=== PATIENT | female | born 1945 | race Caucasian/White ===

== ENCOUNTER 2018-03-23 21:37 | Inpatient (IN) | payer MEDICARE, OTHER ==
--- NOTE | 2018-03-23 22:34 | ED Physician Chart ---
ED Chief Complaint/HPI - Patient Information Date Seen:: 03/23/18 Time Seen:: 21:30 Chief Complaint:: Depression History of Present Illness:: onset x 3 days of depression and decreased activity; no report of trauma, SIs, H /As, S/T, neck pain, C/P, SOB, Abd. Pain, A/N/V/D/C, fever, chills, or urinary s /s Historian:: Patient, EMS Review:: Nurse's Note Reviewed, Old Chart Reviewed, EMS run form Reviewed ED Review of Systems - Review of Systems General/Constitutional: No fever, No chills, No weight loss, No weakness, No diaphoresis, No edema, No loss of appetite Skin: No skin lesions, No rash, No bruising Head: No headache, No light-headedness Eyes: No loss of vision, No pain, No diplopia ENT: No earache, No nasal drainage, No sore throat, No tinnitus Neck: No neck pain, No swelling, No thyromegaly, No stiffness, No mass noted Cardio Vascular: No chest pain, No palpitations, No PND, No orthopnea, No edema Pulmonary: No SOB, No cough, No sputum, No wheezing GI: No nausea, No vomiting, No diarrhea, No pain, No melena, No hematochezia, No constipation, No hematemesis G/U: No dysuria, No frequency, No hematuria, No nacturia [employer]: No vaginal discharge, No abnormal vaginal bleed, No contraction Musculoskeletal: No bone or joint pain, No back pain, No muscle pain Endocrine: No polyuria, No polydipsia Psychiatric: Prior psych history, Depression, Anxiety, No suicidal ideation, No homicidal ideation, No auditory hallucination, No visual hallucination Hematopoietic: No bruising, No lymphadenopathy Allergic/Immuno: No urticaria, No angioedema Neurological: No syncope, No focal symptoms, No weakness, No paresthesia, No headache, No seizure, No dizziness, Confusion, No vertigo ED Past Medical History - Past Medical History Obtainable: Yes Past Medical History: HTN, Dyslipidemia, Arthritis, Dementia Family History: HTN Social History: Non Smoker, No Alcohol, No Drug Use, Single, Care Facility Surgical History: None Psychiatricy History: Depression, Dementia Medication: Reviewed Family Medical History - Family Member Mother History Unknown: Yes ED Physical Exam - Physical Examination General/Constitutional: Awake, Well-developed, well-nourished, Alert, No distress, GCS 15, Non-toxic appearing, Ambulatory Head: Atraumatic Eyes: Lids, conjuctiva normal, PERRL, EOMI Skin: Nl inspection, No rash, No skin lesions, No ecchymosis, Well hydrated, No lymphadenopathy ENMT: External ears, nose nl, TM canals nl, Nasal exam nl, Lips, teeth, gums nl , Oropharynx nl, Tonsils nl Neck: Nontender, Full ROM w/o pain, No JVD, No nuchal rigidity, No bruit, No mass, No stridor Other Neck comments:: supple; no meningeal signs; no cervical tenderness Respiratory: Nl effort/Exclusion, Clear to Auscultation, No Wheeze/Rhonchi/Rales Cardio Vascular: RRR, No murmur, gallop, rubs, NL S1 S2, Carotid/Femoral/Distal pulses equal bilaterally GI: No tenderness/rebounding/guarding, No organomegaly, No hernia, Normal BS's, Nondistended, No mass/bruits, No McBurney tenderness Other GI comments:: no pulsatile masses : No CVA tenderness Extremities: No tenderness or effusion, Full ROM, normal strength in all extremities, No edema, Normal digits & nails Neuro/Psych: Alert/oriented, DTR's symmetric, Normal sensory exam, Normal motor strength, Judgement/insight normal, Mood normal, Normal gait, No focal deficits Other Neuro/Psych comments:: + Psychomotor Retardation; no SIs; Mood/Affect: Labile Misc: Normal back, No paraspinal tenderness ED Labs/Radiology/EKG Results - Lab Results Comments:: unremarkable - EKG Interpretations EKG Time:: 22:52 Rate & Rhythm: 77; NSR Comments:: non-specific st-t changes ED Septic Shock - . Is Septic Shock (SBP<90, OR Lactate>4 mmol\L) present?: No ED Reassessment (Disposition) - Reassessment Reassessment Condition:: Improved - Diagnosis Diagnosis:: Dx: Depression; Bipolar Disorder; Medical Clearance - Aftercare/Follow up Instructions Aftercare/Follow-Up Instructions:: Counseled pt regarding lab results/diagnosis & need follow up, Counseled pt & family regarding lab results/diagnosis & need follow up - Patient Disposition Discharge/Transfer:: Acute Care w/in this hosp Admitted to:: [facility] Condition at Disposition:: Stable, Improved
[2018-03-23 22:53] LABS: % BASOPHILS 0.3 % (0.0-2.0); % EOSINOPHILS 3.7 % (0.0-5.0); % LYMPHOCYTES 18.5 % (20.0-50.0); % MONOCYTES 3.8 % (2.0-10.0); % NEUTROPHILS 73.7 % (40.0-80.0); EOSINOPHILE ABSOLUTE 0.4 Th/cmm (0.1-0.4); HEMATOCRIT 35.9 % (41.0-60); LYMPHOCYTE ABSOLUTE 1.8 Th/cmm (1.5-3.0); MEAN CORPUSCULAR HEMOGLOBIN 28.3 pg (27.0-31.0); MEAN CORPUSCULAR HGB CONC 33.3 pg (28.0-36.0); MEAN PLATELET VOLUME 7.1 fl; MONOCYTE ABSOLUTE 0.4 Th/cmm (0.3-1.0); NEUTROPHILE ABSOLUTE 7.2 Th/cmm (1.8-8.0); PLATELET COUNT 437 Th/cmm (150-400); RED BLOOD COUNT 4.23 Mil/cmm (3.80-5.20); RED CELL DISTRIBUTION WIDTH 14.4 % (11.5-20.0); WHITE BLOOD COUNT 9.8 Th/cmm (4.8-10.8)
[2018-03-23 23:08] LABS: ACETAMINOPHEN < 10.0 ug/mL (10.0-30.0); ALB/GLOB RATIO 0.9 (1.0-1.8); ALBUMIN 3.4 gm/dL (3.7-5.3); ALKALINE PHOSPHATASE 88 U/L (34-104); ANION GAP 13.2 (7.0-16.0); BILIRUBIN,TOTAL 0.3 mg/dL (0.3-1.0); BUN - UREA NITROGEN 11 mg/dL (7-25); CALCIUM SERUM 9.1 mg/dL (8.6-10.3); CARBON DIOXIDE 25.7 mEq/L (21.0-31.0); CHLORIDE 98 mEq/L (98-107); CHOLESTEROL 177 mg/dL (<200); CREATININE - SERUM 0.6 mg/dL (0.6-1.2); GLUCOSE 138 mg/dL (70-105); HDL -HIGH DENSITY LIPOPROTEIN 66 mg/dL (23-92); POTASSIUM SERUM 3.9 mEq/L (3.5-5.1); SALICYLATES (ASPIRIN) < 25.0 mg/L (30.0-100.0); SGOT 13 U/L (13-39); SGPT/ALT 9 U/L (7-52); SODIUM SERUM 133 mEq/L (136-145); TOTAL PROTEIN,SERUM 7.2 gm/dL (6.0-8.3); TRIGLYCERIDES 116 mg/dL (<150)
[2018-03-24 00:36] VITALS: BP 163/81
[2018-03-24] MEDS ORDERED: Magnesium Hydroxide (MOM) 30 mL UDC PO PRN (06:57)
[2018-03-24] MEDS ORDERED: Polyvinyl Alcohol Ophth Soln 15 mL Bottle EACH EYE PRN (06:57)
[2018-03-24] MEDS: Hydrocodone/APAP 10 mg/325 mg Tab PO SCH ×3 (08:00→19:54)
[2018-03-24] MEDS ORDERED: Non-Formulary Item 1 EA (Ipratropium Bromide [Atrovent Hfa] 2 PUFF) INH SCH (09:00)
[2018-03-24] MEDS ORDERED: [UNRECOGNIZED DRUG - OTHER] PO SCH (09:00)
[2018-03-24] MEDS ORDERED: Non-Formulary Item 1 EA (Nifedipine [Nifedipine Er] 60 MG) PO SCH (09:00)
[2018-03-24] MEDS: NIFEdipine 30 mg ER Tab PO SCH (09:41)
[2018-03-24] MEDS: Aspirin 81mg Chewable Tab PO SCH (09:41)
--- NOTE | 2018-03-24 09:41 | Diagnostic Imaging Report ---
CHEST X-RAY: AP view INDICATION: COPD, shortness of breath COMPARISON: None FINDINGS: Chronic lung changes are seen with right upper lung zone scarring. Slight increased left basal lung markings are noted. No focal consolidation. Cardiomegaly is noted with atherosclerosis. Degenerative changes of the spine are noted. Old left clavicular fracture is noted. IMPRESSION: Chronic lung changes. Slight increased left basal lung markings may be due to atelectasis or superimposition of soft tissue structures. Infiltrate is less likely. Please correlate with clinical findings. Right upper lobe scarring. Cardiomegaly with atherosclerosis.
--- NOTE | 2018-03-24 10:56 | History & Physical ---
ADMIT DATE: 03/24/2018 CHIEF COMPLAINT: Worsening confusion, lethargy and severe depression and mood disorder. HISTORY OF PRESENT ILLNESS: The patient is a pleasant 72-year-old female. She has a significant history of lumbar spine, DJD bilateral hips, multiple surgeries along with COPD and chronic pain and hypertension. She also has history of asthma. She was presented to the Geropsych Unit for severe depression and worsening mood disorder and overall decline as well. PAST MEDICAL HISTORY: Significant for hypertension, COPD, chronic pain, DJD of the hips, lumbar spine. PAST SURGICAL HISTORY: Multiple low back surgeries and elbow surgery as well. She has history of severe degenerative joint disease. She has hardware placement in the right elbow as well. SOCIAL HISTORY: Denies any alcohol, tobacco or drug abuse. FAMILY HISTORY: Noncontributory. ALLERGIES: She is ALLERGIC TO ERYTHROMYCIN, MORPHINE, AND PENICILLINS. FAMILY HISTORY: Noncontributory. MEDICATIONS: Home medications reviewed and reconciled. REVIEW OF SYSTEMS: GENERAL: Positive recent fatigue and decreased appetite. HEENT: No recent head trauma, change in vision, taste, hearing, or smell. ORAL: No recent pain or discharge. NECK: No recent tracheal deviation. SKIN: No recent rashes. PSYCHIATRIC: Positive for worsening mood and severe depression. EXTREMITIES: No recent edema. MUSCULOSKELETAL: Positive for severe DJD of the hips, elbows, knees and lumbar spine as well. ABDOMEN: No recent pain or distension. RESPIRATORY: She has history of COPD. CARDIOVASCULAR: No history of [place]. She has history of hypertension. SKIN: No recent rashes. PHYSICAL EXAMINATION: VITAL SIGNS: Temperature is 97.8 degrees, heart rate is 75, respirations 18, blood pressure 163/81. Currently, the pain is about 4/10. GENERAL: No acute distress, awake, alert to name. She knows she is in the hospital. HEENT: No acute issues. NECK: Trachea is midline. No JVD. CARDIOVASCULAR: Regular rate and rhythm. ABDOMEN: Nontender, nondistended. SKIN: No rashes. PSYCHIATRIC: She has labile mood. EXTREMITIES: 1+ edema lower extremities bilaterally. MUSCULOSKELETAL: She has decreased range of motion at the knees, hips, elbows as well because of severe degenerative joint disease. She also has low back pain. NEUROLOGIC: No evidence of acute stroke or seizure activity. RESPIRATORY: Decreased breath sounds bilaterally. NECK: No JVD. LABORATORY DATA: White count is 9.8; hemoglobin is 12; platelet count is 437,000. Sodium 133, potassium 3.9, chloride 98, bicarbonate 25.7, BUN 11, creatinine 0.6. Rest of the labs are pending. ASSESSMENT AND PLAN: 1. Hyponatremia. 2. Severe lumbar spine degenerative joint disease. 3. Bilateral hip, degenerative joint disease. 4. Obese. 5. Unsteady gait. 6. Chronic pain. 7. Hyponatremia. 8. Hypertension. 9. Chronic obstructive pulmonary disease. PLAN: The patient is on p.r.n. Tylenol and p.r.n. [place]. Put on routine [place] 5/325 b.i.d. because of severe and chronic pain. Monitor for any constipation. I will put on Colace as well as she can benefit from PT once she is more stable. Continue breathing treatments with DuoNeb follow up on chest x-ray as well. Discussed care plan with the patient and the staff. [facility]# [id number]
[2018-03-24] MEDS: Hydrocodone/APAP 5mg/325mg Tab PO SCH (16:33)
[2018-03-24 16:42] LABS: A1C % 5.3 % (4.0-6.0)
[2018-03-24] MEDS: Albuterol/Ipratropium Neb 3 ML AERS HHN SCH (19:39)
[2018-03-25] MEDS: Hydrocodone/APAP 10 mg/325 mg Tab PO SCH ×4 (01:45→19:55)
--- NOTE | 2018-03-25 03:19 | Psychosocial Evaluation ---
DATE OF SERVICE: 03/23/2018 IDENTIFYING DATA: The patient is a 72-year-old woman, resident of [facility]. Information obtained by directly interviewing the patient as well as reviewing the admission papers and they are reliable. JUSTIFICATION OF HOSPITALIZATION: The patient is admitted here on a voluntary basis in view of her depression. CHIEF COMPLAINT: "I don't know of what they are trying to tell me." HISTORY OF PRESENT ILLNESS: This is the first psychiatric hospitalization to [facility] for this patient who is reported to have been feeling depressed and has been having problem with insomnia and the patient hence has been referred over here for stabilization. PAST PSYCHIATRIC HISTORY: Details are not known. MEDICAL HISTORY AND PHYSICAL EXAMINATION: Requested to be done by Dr. Sorenson. SUBSTANCE ABUSE HISTORY: None. PHYSICAL OR SEXUAL ABUSE HISTORY: None. LEGAL PROBLEMS: None at this time. STRENGTH AND ASSETS: The patient is motivated. MENTAL STATUS EXAMINATION: The patient is a 72-year-old, looking her stated age. Moderately obese, cooperative. Eye contact is fair. Mood is irritable. Affect is constricted. The patient is reporting that she could not feel it out why she has to be in here. The patient is alert and oriented x 3. Short and long-term memory noted to be intact. The patient's major concern at this time seems to be pain and she wants more of the Percocet and the muscle relaxer. The patient's coping skills are noted to be poor at this time. The patient is not presenting with any threats to harm self or others. The patient is motivated for treatment. The patient is not presenting any psychotic symptoms. DIAGNOSTIC IMPRESSION: AXIS I: Major depressive disorder, first episode and moderate. AXIS II: None. AXIS III: As per Dr. Sorenson. IMMEDIATE TREATMENT PLAN: The patient is going to be observed on the inpatient unit, provided with supportive psychotherapy. The patient is going to be closely monitored. Once stabilized, the patient is going to be discharged to [facility] for further care. JOB# [id number]
[2018-03-25] MEDS: Albuterol/Ipratropium Neb 3 ML AERS HHN SCH ×3 (07:23→19:24)
[2018-03-25] MEDS: NIFEdipine 30 mg ER Tab PO SCH (09:17)
[2018-03-25] MEDS: Aspirin 81mg Chewable Tab PO SCH (09:19)
[2018-03-25] MEDS: Hydrocodone/APAP 5mg/325mg Tab PO SCH ×2 (09:20→18:00)
[2018-03-26] MEDS: Hydrocodone/APAP 10 mg/325 mg Tab PO SCH ×4 (01:07→19:30)
--- NOTE | 2018-03-26 03:16 | Progress Notes ---
DATE: 03/25/2018 SUBJECTIVE: Staff was spoken to. The patient is interviewed. Mood is noted to be irritable. Affect is constricted. The patient is stating that there is no reason for her to be in here and she states that she is not feeling depressed. The patient has been having problem with the sleep and the patient has been asking for more and more of the pain medications. It is decided to start the patient with the Remeron 7.5 mg at bedtime and closely monitor the patient for any side effects. ASSESSMENT: The patient is still isolative and withdrawn and worrying about the pain medications. PLAN: To continue the patient with the supportive therapy and followup. JOB# [id number]
[2018-03-26] MEDS: Albuterol/Ipratropium Neb 3 ML AERS HHN SCH ×2 (07:00→12:57)
[2018-03-26] MEDS: Hydrocodone/APAP 5mg/325mg Tab PO SCH ×2 (09:45→18:37)
[2018-03-26] MEDS: NIFEdipine 30 mg ER Tab PO SCH (09:45)
[2018-03-26] MEDS: Aspirin 81mg Chewable Tab PO SCH (09:46)
--- NOTE | 2018-03-26 10:00 | Consultation ---
DATE OF CONSULTATION: 03/25/2018 REFERRING PHYSICIAN: Marshall Rivera M.D. TYPE OF CONSULTATION: Psychology. HISTORY OF PRESENT ILLNESS: The patient is a 72-year-old female. The patient is a resident of [facility]. The following is by the patient's self report as well as by review of the medical record. The patient has been interviewed and evaluated. The patient is admitted on a voluntary basis due to increased depression. Upon interview, the patient presents as confused. The patient is having difficulty understanding the clinical questions. The patient admits that she is feeling very depressed as well as complaining of poor sleep, i.e. insomnia. The patient denied any suicidal ideation, plan or intention. The patient appears to be passively accepting of treatment. PAST MEDICAL HISTORY: Please see history and physical by Dr. Sorenson. PAST PSYCHIATRIC HISTORY: Details and records are unavailable at this time. SUBSTANCE ABUSE HISTORY: The patient denied any history. PSYCHOSOCIAL HISTORY: The patient did not answer questions about occupational or educational history. The patient states that she is a [employer]. The patient denied any history of physical or sexual abuse. The patient denies any current legal problems. MENTAL STATUS EXAMINATION: The patient appears to be her stated age. The patient's attitude is cooperative. Speech is delayed. Eye contact is fair. Mood is depressed and somewhat irritable. Affect is constricted. Thought process shows to be depressogenic. The patient is not understanding why she has been hospitalized. The patient denied any suicidal ideation, plan or intention. The patient denies any auditory or visual hallucinations or delusions. The patient's behavior has been compliant and redirectable. Impulse control is adequate. Concentration is fair to poor. The patient was able to focus on some of the clinical inquiries but seemed to become confused at times. The patient did not participate in the memory assessment. Immediate and short term memory appear possibly to be impaired. Long-term memory needs further evaluation. Sensorium was alert and oriented to person and place. The patient did not participate in the interpretation of proverbs. Insight is poor. Judgment is poor. DIAGNOSTIC IMPRESSION: AXIS I: Major depressive disorder, first episode, moderate. AXIS II: Deferred. AXIS III: Please see history and physical by Dr. Sorenson. TREATMENT PLAN: The patient has been seen by Dr. Rivera for psychiatric evaluation and for the management of the patient's psychotropic medications. We will provide supportive psychotherapy to include cognitive behavioral therapy to decrease the patient's depression. We will provide coping skills and strategies for phase of life issues for the same treatment goal. We will encourage the patient to verbalize her concerns. We will continue to provide supportive therapy and motivational enhancement for the patient to become compliant and stay compliant with all aspects of her care and treatment during her hospital stay. Thank you, Dr. Rivera for this consult and the opportunity to participate with you in this patient's care. JOB# [id number] [email or web address]
--- NOTE | 2018-03-26 22:25 | Progress Notes ---
DATE: 03/26/2018 PSYCHIATRIC PROGRESS NOTE SUBJECTIVE: Staff was spoken to. The patient is interviewed. Mood is noted to be irritable. Affect is constricted. Insight and judgment at this time are noted to be impaired. Impulse control is noted to be limited. The patient has been having difficult time to cope with the stress. The patient is stating that her major concern is pain rather than depression and she needs to be on a higher dose of pain medications. The patient is currently on [place]. The patient is stating that [place] is not helping and she wants to be going on a higher dose of the medications. ASSESSMENT: The patient is still depressed. PLAN: To continue the patient with the supportive therapy. I encouraged the patient to verbalize the concerns rather than to act out. JOB# [id number]
[2018-03-27] MEDS: Hydrocodone/APAP 10 mg/325 mg Tab PO SCH ×4 (00:10→18:28)
[2018-03-27] MEDS: Albuterol/Ipratropium Neb 3 ML AERS HHN SCH ×4 (06:45→22:06)
[2018-03-27] MEDS: NIFEdipine 30 mg ER Tab PO SCH (08:52)
[2018-03-27] MEDS: Hydrocodone/APAP 5mg/325mg Tab PO SCH ×2 (08:52→16:28)
[2018-03-27] MEDS: Aspirin 81mg Chewable Tab PO SCH (08:52)
--- NOTE | 2018-03-27 19:06 | Progress Notes ---
DATE: 03/27/2018 SUBJECTIVE: Staff was spoken to. The patient is interviewed. Mood is noted to be irritable. Affect is constricted. Insight is noted to be still impaired. Impulse control is noted to be poor. Coping skills are also noted to be very poor. The patient is stating that she needed higher dose of pain medication, which she is not getting. ASSESSMENT: The patient is still seeking pain medications and is depressed. PLAN: To continue the patient with current medications and follow. JOB# [id number]
[2018-03-28] MEDS: Hydrocodone/APAP 10 mg/325 mg Tab PO SCH ×3 (00:12→12:17)
[2018-03-28] MEDS: Albuterol/Ipratropium Neb 3 ML AERS HHN SCH (07:14)
--- NOTE | 2018-03-28 09:01 | General Progress Note ---
Subjective - Review of Systems Service Date: 03/28/18 Subjective: Pt seen and eval. NAD. Labile mood. Very talkative. No n,v,d or cp. No falls or sz. Has been eating better. Objective - Results Result Diagrams: 03/23/18 22:43 03/23/18 22:43 Recent Labs: Laboratory Last Values WBC 9.8 Th/cmm (4.8-10.8) 03/23/18 22:43 RBC 4.23 Mil/cmm (3.80-5.20) 03/23/18 22:43 Hgb 12.0 gm/dL (12-16) 03/23/18 22:43 Hct 35.9 % (41.0-60) L 03/23/18 22:43 MCV 85.0 fl (81-100) 03/23/18 22:43 MCH 28.3 pg (27.0-31.0) 03/23/18 22:43 MCHC Differential 33.3 pg (28.0-36.0) 03/23/18 22:43 RDW 14.4 % (11.5-20.0) 03/23/18 22:43 Plt Count 437 Th/cmm (150-400) H 03/23/18 22:43 MPV 7.1 fl 03/23/18 22:43 Neutrophils % 73.7 % (40.0-80.0) 03/23/18 22:43 Lymphocytes % 18.5 % (20.0-50.0) L 03/23/18 22:43 Monocytes % 3.8 % (2.0-10.0) 03/23/18 22:43 Eosinophils % 3.7 % (0.0-5.0) 03/23/18 22:43 Basophils % 0.3 % (0.0-2.0) 03/23/18 22:43 Sodium 133 mEq/L (136-145) L 03/23/18 22:43 Potassium 3.9 mEq/L (3.5-5.1) 03/23/18 22:43 Chloride 98 mEq/L (98-107) 03/23/18 22:43 Carbon Dioxide 25.7 mEq/L (21.0-31.0) 03/23/18 22:43 Anion Gap 13.2 (7.0-16.0) 03/23/18 22:43 BUN 11 mg/dL (7-25) 03/23/18 22:43 Creatinine 0.6 mg/dL (0.6-1.2) 03/23/18 22:43 Est GFR ( Amer) TNP 03/23/18 22:43 Est GFR (Non-Af Amer) TNP 03/23/18 22:43 BUN/Creatinine Ratio 18.3 03/23/18 22:43 Glucose 138 mg/dL (70-105) H 03/23/18 22:43 Hemoglobin A1c % 5.3 % (4.0-6.0) 03/23/18 22:43 Calcium 9.1 mg/dL (8.6-10.3) 03/23/18 22:43 Total Bilirubin 0.3 mg/dL (0.3-1.0) 03/23/18 22:43 AST 13 U/L (13-39) 03/23/18 22:43 ALT 9 U/L (7-52) 03/23/18 22:43 Alkaline Phosphatase 88 U/L (34-104) 03/23/18 22:43 Troponin I < 0.01 ng/mL (0.01-0.05) L 03/23/18 22:43 Total Protein 7.2 gm/dL (6.0-8.3) 03/23/18 22:43 Albumin 3.4 gm/dL (3.7-5.3) L 03/23/18 22:43 Globulin 3.8 gm/dL 03/23/18 22:43 Albumin/Globulin Ratio 0.9 (1.0-1.8) L 03/23/18 22:43 Triglycerides 116 mg/dL (<150) 03/23/18 22:43 Cholesterol 177 mg/dL (<200) 03/23/18 22:43 LDL Cholesterol Direct 94 mg/dL (75-193) 03/23/18 22:43 HDL Cholesterol 66 mg/dL (23-92) 03/23/18 22:43 TSH 1.03 uIU/ml (0.34-5.60) 03/23/18 22:43 Salicylates < 25.0 mg/L (30.0-100.0) L 03/23/18 22:43 Acetaminophen < 10.0 ug/mL (10.0-30.0) L 03/23/18 22:43 Ethyl Alcohol < 10 mg/dL (0-10) 03/23/18 22:43 RPR NONREACTIVE (NONREACTIVE) 03/23/18 22:43 - Physical Exam Vitals and I&O: Vital Signs Temp 98.1 F 03/28/18 05:14 Pulse 73 03/28/18 07:14 Resp 18 03/28/18 07:22 BP 151/79 03/28/18 05:14 Pulse Ox 95 03/28/18 07:14 Active Medications: Current Medications Acetaminophen (Tylenol) 650 mg PO Q6H PRN PRN Reason: general body pain Stop: 05/23/18 00:00 Last Admin: 03/24/18 01:39 Dose: 650 mg Acetaminophen/Hydrocodone Bitart ([place] 10 Mg/325 Mg) 1 tab PO Q6H ANTONIA Stop: 05/23/18 06:59 Last Admin: 03/28/18 06:00 Dose: 1 tab Acetaminophen/Hydrocodone Bitart ([place] 5mg/325mg) 1 tab PO BID [facility] Stop: 05/23/18 16:59 Last Admin: 03/27/18 16:28 Dose: 1 tab Albuterol/Ipratropium (Duoneb Neb) 3 ml HHN [id number] [facility] Stop: 05/23/18 12:59 Last Admin: 03/28/18 07:14 Dose: 3 ml Amitriptyline HCl (Elavil) 25 mg PO HS ANTONIA PRN Reason: Protocol Stop: 05/23/18 20:59 Last Admin: 03/27/18 21:10 Dose: 25 mg Artificial Tears (Artificial Tears Ophth Soln) 2 drop EACH EYE Q8H PRN PRN Reason: Dry Eye Stop: 05/23/18 06:56 Aspirin (Aspirin Chewable) 81 mg PO DAILY [facility] Stop: 05/23/18 08:59 Last Admin: 03/27/18 08:52 Dose: 81 mg Carisoprodol (Soma) 350 mg PO Q8H [facility]IA Stop: 05/23/18 06:59 Last Admin: 03/28/18 06:00 Dose: 350 mg Docusate Sodium (Colace) 100 mg PO BID [facility] Stop: 05/23/18 08:59 Last Admin: 03/27/18 16:29 Dose: 100 mg Lorazepam (Ativan) 0.5 mg PO Q6HR PRN; Protocol PRN Reason: Anxiety Stop: 04/23/18 00:44 Last Admin: 03/27/18 22:04 Dose: 0.5 mg Magnesium Hydroxide (Milk Of Magnesia) 30 ml PO HS PRN PRN Reason: Constipation Stop: 05/23/18 06:56 Last Admin: 03/26/18 00:41 Dose: 30 ml Mirtazapine (Remeron) 7.5 mg PO HS ANTONIA PRN Reason: Protocol Stop: 05/23/18 20:59 Last Admin: 03/27/18 21:10 Dose: 7.5 mg Mupirocin (Bactroban Oint) 1 appl NS BID ANTONIA Stop: 03/30/18 09:01 Last Admin: 03/27/18 16:29 Dose: 1 appl Nifedipine (Procardia Xl) 60 mg PO DAILY ANTONIA Stop: 05/23/18 08:59 Last Admin: 03/27/18 08:52 Dose: 60 mg Promethazine HCl (Phenergan) 6.25 mg PO Q6HR PRN PRN Reason: Cough Stop: 05/23/18 06:56 Zolpidem Tartrate (Ambien) 5 mg PO HS PRN PRN Reason: Insomnia Stop: 05/23/18 00:00 Last Admin: 03/28/18 00:12 Dose: 5 mg General: Cooperative, No acute distress HEENT: Atraumatic, PERRLA Neck: Supple, no JVD Cardiovascular: Regular rate, Normal S1, Normal S2 Lungs: Clear to auscultation Assessment/Plan - Assessment Assessment: Hyponatremia - Plan Plan: chem chem 7 tomorrow. Consider change in diet/supplementation if Na still low.
[2018-03-28] MEDS: Aspirin 81mg Chewable Tab PO SCH (09:03)
[2018-03-28] MEDS: Hydrocodone/APAP 5mg/325mg Tab PO SCH (09:03)
[2018-03-28] MEDS: NIFEdipine 30 mg ER Tab PO SCH (09:04)
== END 2018-03-28 13:00 | DRG 885 ==
LOC: ER 21:37 → GERO2 23:15
PROVIDERS: ADMIT Psychiatry & Neurology Psychiatry; ATTEND Psychiatry & Neurology Psychiatry
DX: F31.30 Bipolar disorder, current episode depressed, mild or moderate severity, unspecified (principal); E87.1 Hypo-osmolality and hyponatremia; F03.91 Unspecified dementia, unspecified severity, with behavioral disturbance; Z68.41 Body mass index [BMI] 40.0-44.9, adult; M47.896 Other spondylosis, lumbar region; I11.9 Hypertensive heart disease without heart failure; M16.0 Bilateral primary osteoarthritis of hip; G89.29 Other chronic pain; E66.9 Obesity, unspecified; G47.00 Insomnia, unspecified; R26.81 Unsteadiness on feet; J44.9 Chronic obstructive pulmonary disease, unspecified; E78.5 Hyperlipidemia, unspecified; Z82.49 Family history of ischemic heart disease and other diseases of the circulatory system; Z88.0 Allergy status to penicillin; Z88.5 Allergy status to narcotic agent; Z88.1 Allergy status to other antibiotic agents
CPT/HCPCS: 36415-UA; 71045-TC; 80053-TC; 80061-TC; 80320-TC; 80329-TC; 83036-90; 84443-TC; 84484-TC; 85025-TC; 86592-TC; 93005; 94760; Z7610